=== PATIENT | female | born 1990 | race Caucasian/White ===

== ENCOUNTER 2017-12-10 22:29 | Emergency (ER) | payer OTHER ==
[~2017-12-10] VITALS: Ht 165.1 cm; Wt 74.8 kg
[2017-12-10 22:53] VITALS: Ht 165.1 cm; Wt 74.8 kg
[2017-12-11 00:06] VITALS: BP 116/72
== END 2017-12-11 00:06 | disposition home or self-care (01) ==
LOC: ED 22:29
DX: M23.91 Unspecified internal derangement of right knee (principal); I67.1 Cerebral aneurysm, nonruptured